=== PATIENT | male | born 1955 | race Caucasian/White ===

== ENCOUNTER 2024-01-08 18:05 | Emergency (ER) | payer MEDICARE, OTHER, SELFPAY ==
[2024-01-08 18:10] VITALS: BP 162/78
--- NOTE | 2024-01-08 19:53 | ED.GENMED ---
History of Present Illness
General
Chief Complaint: Swelling
Source: patient
Exam Limitations: none
Time Seen by Provider: 01/08/24 19:45
Nursing documentation reviewed up to this point in time: agreed with
History of Present Illness
History of Present Illness:
68-year-old male presents emergency department complaining of left hand swelling for the past 2 days. He states it is somewhat painful. He denies any injury. He states it came out of nowhere. He works in construction. He takes Terrafugia for
atrial fibrillation.
Past History
Past History
ED Past Medical History: Arrthythmia (Atrial fibrillation), Cancer (Lung cancer) and COPD
ED Past Surgical History: Tonsilectomy and Other (Pneumonia)
Social History
Tobacco: Smoker
Drug: None
Personal:
Living: with family
Employment: Employed
Review of Systems
Review of Systems
Allergies reviewed?: Yes
All Other Systems: Not applicable
Constitutional: Reports no symptoms
EENT: Reports no symptoms
Respiratory: Reports no symptoms
Cardiac: Reports no symptoms
ABD/GI: Reports no symptoms
: Reports no symptoms
Musculoskeletal: Reports joint swelling and edema
Skin: Reports no symptoms
Neurological: Reports no symptoms
Endocrine: Reports no symptoms
Hematologic/Lymphatic: Reports no symptoms
Psychiatric: Reports no symptoms
Phy Exam
Physical Exam
Physical Exam:
Physical Exam
General: no apparent distress, not acutely ill
Neck: supple. no meningeal signs. normal posterior pharynx
Heart: s1/s2 regular rate and rhythm, no murmur. equal radial
pulses.
HEENT: Pupils equal round reactive to light, EOMI
Lungs: no acute respiratory distress. clear bilaterally
Abdomen: normal bowel sounds. not tender. no CVAT
Neuro: alert and oriented. no focal neurological deficits cranial nerves II through XII intact
Skin: no rash
Psychiatric: well kept. interactive and cooperative
Extremities: Left forearm and hand edema. no calf tenderness. negative homans. good distal pulses
Scores
Heart Failure Risk
Heart Failure Risk Score: Not Applicable
Course
Orders/Labs/Results
Orders:
Orders
01/08/24 19:55
US Periph Venous UPPER Ext LT Urgent
Comment:
Reason For Exam: left arm/hand swelling
01/08/24 19:56
IV Insert/Care/Rem.- Treatment PRN
01/08/24 20:04
Forearm, Left 2 View [CR Forearm - Left 2 View] Urgent
Comment:
Reason For Exam: left forearm swelling and pain
01/08/24 20:50
Complete Blood Count/With Diff Urgent
Comprehensive Metabolic Panel Urgent
01/08/24 22:02
CeFAZolin 2 GRAM [Ancef] 2 grams in 10 ml IV NOW
Abnormal Lab Results
01/08/24
20:50
MPV 10.7 H fL
(7.4-10.4)
Immature Gran % 0.6 H %
(0-0.5)
Eosinophils % 10.5 H %
(0-6)
Creatinine 0.6 L mg/dL
(0.7-1.3)
01/08/24 20:50
01/08/24 20:50
Vital Signs
Initial and Last Documented VS:
Initial Vital Signs
Temp Pulse Resp BP Pulse Ox
98.0 F 68 18 162/78 96
01/08/24 18:10 01/08/24 18:10 01/08/24 18:10 01/08/24 18:10 01/08/24 18:10
Last Documented Vital Signs
Temp Pulse Resp BP Pulse Ox
98.0 F 65 16 127/65 95
01/08/24 18:10 01/08/24 21:44 01/08/24 21:44 01/08/24 21:44 01/08/24 21:44
MDM/Problems Addressed
Differential Diagnosis Includes:
DVT, cellulitis
MDM/Problems Addressed:
68-year-old male with cellulitis left forearm. No signs of abscess. Do not suspect TEN. Will give 1 dose of cefazolin, and discharged with prescription for Keflex. Patient is seeing his hardware designer tomorrow.
Chronic conditions affecting care: Arrhythmia
*Radiology
Radiology exam reviewed: radiology read reviewed (Ultrasound shows no signs of DVT, left forearm x-ray shows edema indicative of cellulitis)
*Pulse Oximetry
Patient hypoxic: no
*Critical Care Note
Total Time (30-74mins, 75-104mins- exclusive of procedures): Not Applicable
Patient Management
Social determinants of health affecting care: Living situation and Strong social support
Escalation/DeEscalation of care consider admission/obs:
Admit not indicated
ED Attending Note
-
Portions of this chart may have been created with voice recognition software.� Occasional wrong word or��sound alike� substitutions may have occurred due to the inherent limitations of voice recognition software.
Discharge Plan
Departure
Patient Disposition: Home (Routine Discharge)
Date of Disposition: 01/08/24
Time of Disposition: 22:04
Patient with high blood pressure during this ER visit?: Yes
Condition: Good
Discharge Problem:
Cellulitis of left arm
Instructions: Cellulitis (Skin Infection), Adult ED, BLOOD PRESSURE
Prescriptions:
New
cephalexin 500 mg capsule
500 mg PO QID 10 Days Qty: 40 0RF
No Action
prednisone 10 mg tablets,dose pack
10 mg PO DAILY Qty: 21 0RF
Referrals:
UNKNOWN - PT DOES,NOT KNOW [Family Provider] -
Activity Restrictions/Additional Instructions:
Follow-up with primary care in 5 to 7 days
Interventions
Interventions:
*Risk Screen - Suicide Last Done: 01/08/24 18:10
*General Assessment Last Done: 01/08/24 18:10
*Neglect/Abuse Screening Last Done: 01/08/24 18:10
ED- Fall Risk Assessment Last Done: 01/08/24 20:01
ED- Cardiac Assessment Last Done: 01/08/24 20:01
ED- Pulmonary Assessment Last Done: 01/08/24 20:01
ED-Skin Assessment Last Done: 01/08/24 20:01
Discharge Date and Time
Print Language: MALIAN
[2024-01-08 20:53] VITALS: BP 121/67
[2024-01-08 20:55] LABS: % Basophils 0.4 % (0-2); % Eosinophils 10.5 % (0-6); % Immature Granulocytes 0.6 % (0-0.5); % Lymphocytes 31.4 % (20.5-51.1); % Monocytes 8.1 % (1.7-9.3); Absolute Eosinophils 0.5 10^3/uL (0-0.7); Absolute Lymphocytes 1.6 10^3/uL (1.2-3.4); Absolute Monocytes 0.4 10^3/uL (0.1-0.6); Absolute Neutrophils 2.5 10^3/uL (1.4-6.5); Hematocrit 41.7 % (39.0-52.0); Hemoglobin 14.5 g/dL (13.0-18.0); Mean Corp Hgb Conc. 34.8 g/dL (33.0-37.0); Mean Corpuscular Hgb 30.8 pg (27.0-31.0); Mean Corpuscular Volume 88.5 fL (80.0-94.0); Mean Platelet Volume 10.7 fL (7.4-10.4); Nucleated Red Blood Cells % 0 % (-); Platelet Count 162 10^3/uL (130-400); Red Blood Cell Count 4.71 10^6/uL (4.70-6.10); Red Cell Dist. Width 13.4 % (11.5-14.5); White Blood Cell Count 5.1 10^3/uL (4.8-10.8)
[2024-01-08 21:12] LABS: ALT (SGPT) 19 U/L (0-50); AST (SGOT) 29 U/L (17-59); Albumin 4.3 g/dl (3.5-5.0); Alkaline Phosphatase 71 U/L (38-126); Blood Urea Nitrogen 9 mg/dl (9-20); Calcium 9.7 mg/dl (8.4-10.2); Carbon Dioxide 22 mmol/L (22-30); Chloride 105 mmol/L (98-107); Glucose 89 mg/dl (70-99); Potassium 4.4 mmol/L (3.5-5.1); Sodium 140 mmol/L (135-145); Total Bilirubin 0.3 mg/dl (0.2-1.3); Total Protein 7.2 g/dl (6.3-8.2); eGFR > 60.00
[2024-01-08 21:44] VITALS: BP 127/65
[2024-01-08 22:00] VITALS: BP 134/64
[2024-01-08] MEDS: ANCEF 10 IV (22:17)
== END 2024-01-08 22:23 | disposition home or self-care (01) ==
LOC: EMR 18:05
PROVIDERS: EMERGENCY PHYSICIAN Emergency Medicine
DX: L03.114 Cellulitis of left upper limb (principal); I48.91 Unspecified atrial fibrillation; J44.9 Chronic obstructive pulmonary disease, unspecified; Z85.118 Personal history of other malignant neoplasm of bronchus and lung; Z79.01 Long term (current) use of anticoagulants; F17.200 Nicotine dependence, unspecified, uncomplicated
CPT/HCPCS: 99284; 96374; 73090; 80053; 85025; 93971

== ENCOUNTER 2024-01-12 21:16 | Emergency (ER) | payer MEDICARE, OTHER, SELFPAY ==
[2024-01-12 21:35] VITALS: BP 142/75
[2024-01-12 22:11] LABS: ALT (SGPT) 16 U/L (0-50); AST (SGOT) 28 U/L (17-59); Albumin 4.2 g/dl (3.5-5.0); Alkaline Phosphatase 69 U/L (38-126); Blood Urea Nitrogen 18 mg/dl (9-20); Calcium 9.5 mg/dl (8.4-10.2); Carbon Dioxide 24 mmol/L (22-30); Chloride 101 mmol/L (98-107); Glucose 123 mg/dl (70-99); Potassium 4.4 mmol/L (3.5-5.1); Sodium 139 mmol/L (135-145); Total Bilirubin 0.2 mg/dl (0.2-1.3); Total Protein 7.2 g/dl (6.3-8.2); eGFR > 60.00
[2024-01-12 22:14] LABS: NT-proBNP 380 pg/ml; Troponin I < 0.012 ng/ml
[2024-01-12 22:17] LABS: % Basophils 1.1 % (0-2); % Immature Granulocytes 0.3 % (0-0.5); % Lymphocytes 31.5 % (20.5-51.1); % Monocytes 6.7 % (1.7-9.3); % Neutrophils 50.9 % (42.2-75.2); Absolute Eosinophils 0.3 10^3/uL (0-0.7); Absolute Lymphocytes 1.1 10^3/uL (1.2-3.4); Absolute Monocytes 0.2 10^3/uL (0.1-0.6); Absolute Neutrophils 1.8 10^3/uL (1.4-6.5); Hematocrit 40.8 % (39.0-52.0); Hemoglobin 13.6 g/dL (13.0-18.0); Mean Corp Hgb Conc. 33.7 g/dL (33.0-37.0); Mean Corpuscular Hgb 30.9 pg (27.0-31.0); Mean Corpuscular Volume 91.4 fL (80.0-94.0); Nucleated Red Blood Cells % 0 % (-); Red Blood Cell Count 4.44 10^6/uL (4.70-6.10); Red Cell Dist. Width 13.4 % (11.5-14.5); White Blood Cell Count 3.6 10^3/uL (4.8-10.8)
[2024-01-12 23:20] VITALS: BP 121/97
[2024-01-12] MEDS: DELTASONE 50 MG PO (23:40)
--- NOTE | 2024-01-13 00:27 | ED.GENMED ---
History of Present Illness
General
Chief Complaint: Musculo-Skeletal Complaint
Source: patient
Exam Limitations: none
Time Seen by Provider: 01/12/24 23:23
History of Present Illness
History of Present Illness:
This is a 68 year old male that comes in with c/o right arm pain and his fingers feeling numb. States that he was here last week for left arm pain and swelling. State that he started with right arm pain 2 days ago. States that his fingers feel numb
and he has pain in the wrist, elbow, shoulder and under the right axilla. Denies any fever, chill,s chest pain, SOB, abd pain, nausea,vomiting, diarrhea, headache, dizziness, urinary burning.
Past History
Past History
ED Past Medical History: Arrthythmia (Atrial fibrillation), Cancer (Lung cancer), COPD and Other (PNA, )
ED Past Surgical History: Tonsilectomy and Other (Pneumonia)
Social History
Tobacco: Smoker
Alcohol: Occasional
Drug: None
Personal:
Living: with family
Employment: Employed
Review of Systems
Review of Systems
All Other Systems: ROS reviewed and negative except as documented in HPI and ROS
Constitutional: Reports no symptoms; Denies fever or chills
EENT: Reports no symptoms
Respiratory: Reports no symptoms; Denies cough or trouble breathing
Cardiac: Reports no symptoms; Denies chest pain
ABD/GI: Reports no symptoms; Denies abdominal pain, nausea, vomiting or diarrhea
: Reports no symptoms; Denies dysuria, frequency or urgency
Musculoskeletal: Reports other (Right arm pain)
Skin: Reports no symptoms
Neurological: Reports no symptoms; Denies dizzy or headache
Psychiatric: Reports no symptoms
Phy Exam
General Physical Exam
General Presentation: no apparent distress
General age: appears stated age
General Skin: warm and dry
General Habitus: normal
General Mental: alert
General Hydration: appears well hydrated
ENT Exam
ENT Exam: TM's normal (large amount of Cerumen right ear), pharynx normal and neck supple
Eye Exam
Eye Exam: EOMI
Cardiovascular Exam
Cardiovascular Exam: regular rate/rhythm and normal peripheral pulses
Pulmonary Exam
Pulmonary Exam: no respiratory distress, no rales, chest non tender, no crackles, no rhonchi, no cough and other (Faint exp wheezing throughout)
Gastrointestinal Exam
Gastrointestinal Exam: normal bowel sounds, non tender, soft, no organomegaly, no pulsatile mass and non distended
Musculoskeletal Exam
Musculoskeletal Exam: full ROM and other (Swelling of the left hand noted. No swelling of the right arm. Good peripheral pulses with normal coloring. )
Skin Exam
Skin Exam: normal color, warm/dry, no rash and no petechia
Psychiatric Exam
Psychiatric Exam: normal mood/affect
Course
Orders/Labs/Results
Orders:
Orders
01/12/24 21:24
ECG [Electrocardiogram (*1)] Urgent
Reason for Study: Chest Pain
01/12/24 21:25
EKG- Treatment ONCE
01/12/24 21:42
BNP [NT-proBNP] Urgent
Complete Blood Count/With Diff Urgent
Comprehensive Metabolic Panel Urgent
Troponin I Urgent
01/12/24 23:36
Prednisone [Deltasone] 50 mg PO NOW STA
01/13/24 00:00
US Periph Venous UPPER Ext RT Urgent
Reason For Exam: Pain and swelling
Abnormal Lab Results
01/12/24
21:42
WBC 3.6 L 10^3/uL
(4.8-10.8)
RBC 4.44 L 10^6/uL
(4.70-6.10)
Absolute Lymphs (auto) 1.1 L 10^3/uL
(1.2-3.4)
Eosinophils % 10.0 H %
(0-6)
Glucose 123 H mg/dl
(70-99)
01/12/24 21:42
01/12/24 21:42
Leukopenia, Hyperglycemia. Troponin <0.012, Pro-BNP 380
Vital Signs
Initial and Last Documented VS:
Initial Vital Signs
Pulse Resp BP Pulse Ox
72 18 142/75 97
01/12/24 21:35 01/12/24 21:35 01/12/24 21:35 01/12/24 21:35
Last Documented Vital Signs
Temp Pulse Resp BP Pulse Ox
98.3 F 67 18 121/97 97
01/12/24 21:38 01/12/24 23:20 01/12/24 23:20 01/12/24 23:20 01/12/24 21:35
MDM/Problems Addressed
Differential Diagnosis Includes:
DVT, Gout, Lyme
MDM/Problems Addressed:
This is a 68 year old male that comes in with c/o right arm pain. States that his fingers feel numb and that he has pain all over the arm in the wrist, elbow and under his arm.
Will check labs and get US.
Back into see patient. Explained that his US was normal. Blood work shows that his Troponin is normal. Explained that a Lyme titer was added due to the fact that his joints hurt and this is moving around. Explained that if this is positive he would
be called. Will place patient on steroids to help decrease any inflammation. Patient can use Tylenol or Ibuprofen for pain. Return with any concerns.
Chronic conditions affecting care: Cancer
Acute Exacerbation and/or Progression of Chronic Illness:
NA
*Radiology
Radiology exam reviewed: other (US- negative for DVT right arm. )
*Pulse Oximetry
Patient hypoxic: no
*EKG
Interpreted by ED Provider?: NA
Rate: EKG- N/A
*Space Physicist Interpretation
Rate: Space Physicist- N/A
*Critical Care Note
Total Time (30-74mins, 75-104mins- exclusive of procedures): Not Applicable
ED Attending Note
-
Portions of this chart may have been created with voice recognition software.� Occasional wrong word or��sound alike� substitutions may have occurred due to the inherent limitations of voice recognition software.
Discharge Plan
Departure
Patient Disposition: Home (Routine Discharge)
Date of Disposition: 01/13/24
Time of Disposition: 00:40
Patient with high blood pressure during this ER visit?: Yes
Condition: Good
Covid-19: Not Applicable
Discharge Problem:
Arm pain, right, Numbness of finger
Instructions: Acute Pain, Adult (DC), Paresthesia (DC)
Prescriptions:
New
prednisone 20 mg tablet
40 mg PO DAILY Qty: 10 0RF
No Action
prednisone 10 mg tablets,dose pack
10 mg PO DAILY Qty: 21 0RF
cephalexin 500 mg capsule
500 mg PO QID 10 Days Qty: 40 0RF
Referrals:
Dom Trejo MD [Family Provider] - Follow up in 2-3 days
Activity Restrictions/Additional Instructions:
As discussed, your blood work is normal. Your Ultrasound is negative for any blood clots. A Lyme titer was added to your blood work. If this would come back positive you will be called. You have had a prescription for Prednisone sent to your
Pharmacy. Please take this as directed as this will help decreased inflammation and hopefully help with pain. Follow up with the family doctor for recheck. IF YOU HAVE ANY OTHER CONCERNS PLEASE RETURN TO THE EMERGENCY ROOM.
Interventions
Interventions:
*Risk Screen - Suicide Last Done: 01/12/24 21:36
*General Assessment Last Done: 01/12/24 21:37
*Neglect/Abuse Screening Last Done: 01/12/24 21:36
*ED COVID-19 Vaccine History Last Done: 01/12/24 21:37
ED-Musculoskeletal Assessment Last Done: 01/12/24 23:21
ED- Neurological Assessment Last Done: 01/12/24 23:21
Discharge Date and Time
Print Language: ISRAELI
== END 2024-01-13 00:49 | disposition home or self-care (01) ==
LOC: EMR 21:16
PROVIDERS: Emergency Medicine; EMERGENCY PHYSICIAN Emergency Medicine; FAMILY PHYSICIAN Family Medicine
DX: M79.601 Pain in right arm (principal); R20.0 Anesthesia of skin; I48.91 Unspecified atrial fibrillation; F17.200 Nicotine dependence, unspecified, uncomplicated; J44.9 Chronic obstructive pulmonary disease, unspecified; Z85.118 Personal history of other malignant neoplasm of bronchus and lung
CPT/HCPCS: 99284; 80053; 83880; 84484; 85025; 86618; 93005; 93971

== ENCOUNTER → 2024-04-22 10:15 | Outpatient (REF) | payer MEDICARE, OTHER, SELFPAY | LOC: EMG 10:15 | PROVIDERS: ATTENDING PHYSICIAN Pain Medicine Interventional Pain Medicine | DX: M54.12 Radiculopathy, cervical region (principal) | CPT/HCPCS: 95886; 95911 ==

== ENCOUNTER 2024-05-29 19:15 | Emergency (ER) | payer MEDICARE, OTHER, SELFPAY ==
[2024-05-29 19:19] VITALS: BP 145/70
[2024-05-29 19:51] LABS: % Basophils 0.6 % (0-2); % Eosinophils 2.3 % (0-6); % Immature Granulocytes 0.8 % (0-0.5); % Lymphocytes 17.8 % (20.5-51.1); % Monocytes 4.6 % (1.7-9.3); % Neutrophils 73.9 % (42.2-75.2); Absolute Basophils 0.1 10^3/uL (0-0.2); Absolute Eosinophils 0.2 10^3/uL (0-0.7); Absolute Immature Granulocytes 0.1 10^3/uL (0-0.05); Absolute Lymphocytes 1.4 10^3/uL (1.2-3.4); Absolute Monocytes 0.4 10^3/uL (0.1-0.6); Absolute Neutrophils 5.7 10^3/uL (1.4-6.5); Hematocrit 43.6 % (39.0-52.0); Hemoglobin 14.9 g/dL (13.0-18.0); Mean Corp Hgb Conc. 34.2 g/dL (33.0-37.0); Mean Corpuscular Volume 87.7 fL (80.0-94.0); Mean Platelet Volume 8.6 fL (7.4-10.4); Nucleated Red Blood Cells % 0 % (-); Platelet Count 283 10^3/uL (130-400); Red Blood Cell Count 4.97 10^6/uL (4.70-6.10); Red Cell Dist. Width 16.1 % (11.5-14.5); White Blood Cell Count 7.8 10^3/uL (4.8-10.8)
[2024-05-29 20:02] LABS: ALT (SGPT) 19 U/L (0-50); AST (SGOT) 24 U/L (17-59); Albumin 4.9 g/dl (3.5-5.0); Alkaline Phosphatase 94 U/L (38-126); Blood Urea Nitrogen 10 mg/dl (9-20); Calcium 9.5 mg/dl (8.4-10.2); Carbon Dioxide 23 mmol/L (22-30); Chloride 99 mmol/L (98-107); Glucose 120 mg/dl (70-99); Potassium 4.2 mmol/L (3.5-5.1); Sodium 137 mmol/L (135-145); Total Bilirubin 0.5 mg/dl (0.2-1.3); Total Protein 8.2 g/dl (6.3-8.2); eGFR > 60.00
[2024-05-29 22:11] VITALS: BP 139/62
[2024-05-29 23:00] VITALS: BP 134/50
--- NOTE | 2024-05-29 23:24 | ED.GENMED ---
History of Present Illness
<Grazyna Quintanilla PA-C - Last Filed: 05/30/24 16:19>
General
Chief Complaint: Weakness
Source: patient
Exam Limitations: none
Time Seen by Provider: 05/29/24 23:00
Nursing documentation reviewed up to this point in time: agreed with
History of Present Illness
History of Present Illness:
Patient is a 68-year-old male presenting to the emergency department with difficulty walking. Patient states he was attempting to get out of his truck this evening when both of his legs gave out and he fell onto his bilateral knees. Patient states
he was unable to get up on his own until his [id number]-ton came to help. Patient states he has been unable to walk since this happened as his legs like they are 'buckling '. He describe a pain/tightness behind his left knee while bending his knee.
Patient denies any numbness/tingling in bilateral lower extremities. He denies any weakness sensation. He denies any preceding chest pain or shortness of breath prior to fall. Patient denies any headache. Patient denies any loss of consciousness
or head strike.
Patient does report this occurred shortly after leaving a bar where he had 3 beers and a burger. He does take Eliquis for atrial fibrillation.
Past History
<Grazyna Quintanilla PA-C - Last Filed: 05/30/24 16:19>
Past History
ED Past Medical History: Arrthythmia (Atrial fibrillation), Cancer (Lung cancer), COPD and Other (PNA, )
ED Past Surgical History: Tonsilectomy and Other (Pneumonia)
Social History
Tobacco: Smoker
Alcohol: Occasional
Drug: None
Personal:
Living: with family
Employment: Employed
Review of Systems
<Grazyna Quintanilla PA-C - Last Filed: 05/30/24 16:19>
Review of Systems
Allergies reviewed?: Yes
All Other Systems: ROS reviewed and negative except as documented in HPI and ROS
Phy Exam
<Grazyna Quintanilla PA-C - Last Filed: 05/30/24 16:19>
Physical Exam
Physical Exam:
Vitals: Patient's vital signs are stable. Afebrile
General: Patient is flushed appearing. No apparent distress
Skin: Warm and dry, no rashes or lesions
Head: Normocephalic, atraumatic
Eyes: Sclera nonicteric. EOMs intact. No nystagmus.
Throat: Protecting airway
Neck: Normal ROM, no cervical spine tenderness, no meningismus
Cardiac: Regular rate and rhythm, no murmurs.
Pulm: Normal respiratory effort, no wheezes, rales, rhonchi heard on exam.
Abdomen: Abdomen soft and nontender no abdominal tenderness.
Extremities: Mild tenderness to palpation in left popliteal fossa. No bony tenderness in right knee with excellent range of motion. No joint laxity of left knee. Excellent ability to dorsiflex/plantarflex bilateral ankles. Bilateral lower
extremities normal capillary refill in palpable distal pulses. Strength grossly intact in bilateral lower extremities with normal sensation. No evidence of cyanosis or edema
Neuro: AAOx3. CN II-XII intact. No focal neurologic deficits. Fluid speech.
Psychiatric: Normal affect.
Course
<Grazyna Quintanilla PA-C - Last Filed: 05/30/24 16:19>
Orders/Labs/Results
Orders:
Orders
05/29/24 19:28
Complete Blood Count/With Diff Urgent
Comprehensive Metabolic Panel Urgent
05/29/24 23:21
EKG- Treatment ONCE
05/29/24 23:59
CR Knee - Left 4 Or More View* Urgent
Reason For Exam: left knee pain, inability to walk
05/30/24
Electrocardiogram (*1) Stat
Reason for Study: Chest Pain
Comment: DONE NO ORDER ENTERED
05/30/24 01:37
CT Head W/o Iv Contrast Urgent
Comment:
Reason For Exam: fall on eliquis
05/30/24 02:53
Chuck Wrap Left-Treatment ONCE
Crutches-Treatment ONCE
Abnormal Lab Results
05/29/24
19:28
RDW 16.1 H %
(11.5-14.5)
Abs Immat Gran (auto) 0.1 H 10^3/uL
(0-0.05)
Immature Gran % 0.8 H %
(0-0.5)
Lymphocytes % 17.8 L %
(20.5-51.1)
Glucose 120 H mg/dl
(70-99)
05/29/24 19:28
05/29/24 19:28
Vital Signs
Initial and Last Documented VS:
Initial Vital Signs
Temp Pulse Resp BP Pulse Ox
97.5 F 88 16 145/70 97
05/29/24 19:19 05/29/24 19:19 05/29/24 19:19 05/29/24 19:19 05/29/24 19:19
Last Documented Vital Signs
Temp Pulse Resp BP Pulse Ox
97.5 F 80 16 146/85 97
05/29/24 19:19 05/30/24 03:22 05/30/24 03:22 05/30/24 03:22 05/30/24 03:22
<Jeyson Carreon MD - Last Filed: 05/30/24 01:57>
Orders/Labs/Results
Orders:
Orders
05/29/24 19:28
Complete Blood Count/With Diff Urgent
Comprehensive Metabolic Panel Urgent
05/29/24 23:21
EKG- Treatment ONCE
05/29/24 23:59
CR Knee - Left 4 Or More View* Urgent
Reason For Exam: left knee pain, inability to walk
05/30/24
Electrocardiogram (*1) Stat
Reason for Study: Chest Pain
Comment: DONE NO ORDER ENTERED
05/30/24 01:37
CT Head W/o Iv Contrast Urgent
Comment:
Reason For Exam: fall on eliquis
05/30/24 02:53
Chuck Wrap Left-Treatment ONCE
Crutches-Treatment ONCE
Abnormal Lab Results
05/29/24
19:28
RDW 16.1 H %
(11.5-14.5)
Abs Immat Gran (auto) 0.1 H 10^3/uL
(0-0.05)
Immature Gran % 0.8 H %
(0-0.5)
Lymphocytes % 17.8 L %
(20.5-51.1)
Glucose 120 H mg/dl
(70-99)
05/29/24 19:28
05/29/24 19:28
Vital Signs
Initial and Last Documented VS:
Initial Vital Signs
Temp Pulse Resp BP Pulse Ox
97.5 F 88 16 145/70 97
05/29/24 19:19 05/29/24 19:19 05/29/24 19:19 05/29/24 19:19 05/29/24 19:19
Last Documented Vital Signs
Temp Pulse Resp BP Pulse Ox
97.5 F 80 16 146/85 97
05/29/24 19:19 05/30/24 03:22 05/30/24 03:22 05/30/24 03:22 05/30/24 03:22
<Grazyna Quintanilla PA-C - Last Filed: 05/30/24 16:19>
MDM/Problems Addressed
Differential Diagnosis Includes:
Not limited to: Knee sprain/strain, neuropathy, Hull's cyst, etc.
MDM/Problems Addressed:
68-year-old male with history as documented presenting with ambulatory dysfunction and reports of left knee pain. He states his of his left leg 'gave out'as he was trying to get out of his truck tonight. He denies any unilateral weakness,
numbness/tingling, headache, or head trauma. Mildly hypertensive, otherwise stable vital signs. Physical exam as above. Patient does have mild tenderness in left popliteal fossa without any joint laxity or bony tenderness of left lower extremity.
Strength 5 out of 5 in bilateral lower extremities with normal range of motion and ankles including plantarflexion/dorsiflexion. There is a normal neurovascular exam of his extremities. No focal neurologic findings on exam. There is no obvious
head or neck trauma. Basic labs were sent in triage without clinically significant abnormalities. Ultimately�suspect musculoskeletal etiology as findings seem isolated to left knee. Do not suspect central process or CVA. Will obtain x-ray left
knee. Given patient is on Eliquis with history of recent alcohol abuse�will obtain head CT to rule out any evidence of head trauma or intracranial abnormality.
Update: CT head without acute abnormalities. X-ray of left knee reviewed by me which shows no acute abnormalities. Suspect ligamentous injury/strain of left knee. Patient is able to ambulate with limp. Will Chuck wrap, provide crutches and
discharged with orthopedic follow-up. Strict return precautions discussed. Patient expressed verbal understanding. Patient will be discharged home with . Case seen with attending physician
Chronic conditions affecting care:
Atrial fibrillation on Eliquis
Acute Exacerbation and/or Progression of Chronic Illness:
N/A
<Grazyna Quintanilla PA-C - Last Filed: 05/30/24 16:19>
*Radiology
Radiology exam reviewed: preliminary read by ED provider (Knee x-ray reviewed by me-no acute fracture or abnormality) and radiology read reviewed (CT head without acute abnormality or evidence of intracranial hemorrhage)
*Pulse Oximetry
Patient hypoxic: no
*EKG
Interpreted by ED Provider?: Yes
EKG Intrepretation Date: 05/30/24
Interpretation: normal
Comparison EKG: no comparison EKG present
Heart Rate: 66
Rate: normal
Rhythm: sinus
[place]: normal axis
Interval: normal interval
QRS Pattern: normal QRS
Ischemia: no ischemia
*Sales And Service Specialist Interpretation
Rate: Sales And Service Specialist- N/A
*Critical Care Note
Total Time (30-74mins, 75-104mins- exclusive of procedures): Not Applicable
ED Attending Note
<Grazyna Quintanilla PA-C - Last Filed: 05/30/24 16:19>
-
Portions of this chart may have been created with voice recognition software.� Occasional wrong word or��sound alike� substitutions may have occurred due to the inherent limitations of voice recognition software.
<Jeyson Carreon MD - Last Filed: 05/30/24 01:57>
ED Attending Note
Patient seen and examined by attending physician: Yes
I performed the substantive portion of visit, reviewed & personally made and approve the management plan that is documented in note by myself or RICARDO.: Yes
ED Attending Note:
Patient was walking out of the bar. Got to his truck and felt like his left leg gave way. He was able to drive home. When he got home the symptoms persisted. It is all pain and weakness behind the left knee. No other neurologic symptoms. No
trauma.
On exam patient is nontoxic in no distress. Slight erythema to both cheeks. Cranial nerves II through XII intact. Speech normal. Good lower extremity strength. Able to plantar and dorsiflex at the ankles very well bilaterally. Achilles intact.
Knee is stable. Some tenderness behind the left knee laterally. Although not no laxity. Upon standing he seems to have pain and slightly buckling of the left knee but again this is isolated to the knee.
Vascular status within normal limits. Good distal pulses. I do not feel this is an acute neurologic event. This is very isolated to the left knee. This appears to be a orthopedic issue with the left knee. No acute vascular issue. Chuck wrap
crutches and orthopedic follow-up
Discharge Plan
Departure
Patient Disposition: Home (Routine Discharge)
Date of Disposition: 05/30/24
Time of Disposition: 02:56
Patient with high blood pressure during this ER visit?: Yes
Covid-19: Not Applicable
Discharge Problem:
Knee pain, left
Instructions: Knee pain - ED discharge instructions
Prescriptions:
No Action
prednisone 10 mg tablets,dose pack
10 mg PO DAILY Qty: 21 0RF
cephalexin 500 mg capsule
500 mg PO QID 10 Days Qty: 40 0RF
prednisone 20 mg tablet
40 mg PO DAILY Qty: 10 0RF
Referrals:
NONE,* [Family Provider] -
Galo Armstrong MD [Active] - Call in 1-3 days for appt
Activity Restrictions/Additional Instructions:
Return to the emergency department with any numbness/tingling in the left lower leg, significant weakness, intractable pain, inability to ambulate, episodes of fainting or any other concerns
- As discussed the workup in the emergency department was negative today including lab work, head CT, and knee x-ray.
- I suspect a likely injury to your left knee which you should follow-up with orthopedics. You are placed in the Chuck wrap and given crutches to assist with ambulation. Continue to ice and elevate your left leg and take Tylenol as needed for pain
- Follow-up with orthopedics for further evaluation/management
Monitor your symptoms closely and return to the emergency department with any acute worsening/new symptoms or any other concerns
Interventions
Interventions:
*Risk Screen - Suicide Last Done: 05/29/24 19:22
*General Assessment Last Done: 05/30/24 03:06
*Neglect/Abuse Screening Last Done: 05/29/24 19:22
*ED- Fall Risk Assessment Last Done: 05/30/24 03:06
*ED COVID-19 Vaccine History Last Done: 05/30/24 03:06
*Nursing Disposition Last Done: 05/30/24 03:22
ED- Cardiac Assessment Last Done: 05/30/24 00:06
ED- Neurological Assessment Last Done: 05/30/24 00:06
ED- Pulmonary Assessment Last Done: 05/30/24 00:06
Discharge Date and Time
Discharge Date/Time: 05/30/24 03:31
Print Language: ANGOLAN
[2024-05-30 01:41] VITALS: BP 126/65
[2024-05-30 03:22] VITALS: BP 146/85
== END 2024-05-30 03:31 | disposition home or self-care (01) ==
LOC: EMR 19:15
PROVIDERS: Emergency Medicine; EMERGENCY PHYSICIAN Emergency Medicine
DX: M25.562 Pain in left knee (principal); W19.XXXA Unspecified fall, initial encounter; R53.1 Weakness; R26.2 Difficulty in walking, not elsewhere classified; I48.91 Unspecified atrial fibrillation; J44.9 Chronic obstructive pulmonary disease, unspecified; Z79.01 Long term (current) use of anticoagulants; Z85.118 Personal history of other malignant neoplasm of bronchus and lung
CPT/HCPCS: 99284; 70450; 73564; 80053; 85025; 93005

== ENCOUNTER 2024-07-07 03:45 | Observation (INO) | payer MEDICARE, OTHER, SELFPAY ==
[2024-07-06 18:42] VITALS: BP 159/71
[2024-07-06 18:57] LABS: % Basophils 0.7 % (0-2); % Eosinophils 3.3 % (0-6); % Immature Granulocytes 0.3 % (0-0.5); % Monocytes 10.5 % (1.7-9.3); % Neutrophils 55.2 % (42.2-75.2); Absolute Basophils 0.1 10^3/uL (0-0.2); Absolute Eosinophils 0.2 10^3/uL (0-0.7); Absolute Monocytes 0.7 10^3/uL (0.1-0.6); Absolute Neutrophils 3.7 10^3/uL (1.4-6.5); Hematocrit 42.8 % (39.0-52.0); Hemoglobin 14.7 g/dL (13.0-18.0); Mean Corp Hgb Conc. 34.3 g/dL (33.0-37.0); Mean Corpuscular Hgb 30.5 pg (27.0-31.0); Mean Corpuscular Volume 88.8 fL (80.0-94.0); Mean Platelet Volume 8.6 fL (7.4-10.4); Nucleated Red Blood Cells % 0 % (-); Platelet Count 225 10^3/uL (130-400); Red Blood Cell Count 4.82 10^6/uL (4.70-6.10); Red Cell Dist. Width 14.7 % (11.5-14.5); White Blood Cell Count 6.7 10^3/uL (4.8-10.8)
[2024-07-06 19:13] LABS: ALT (SGPT) 25 U/L (0-50); AST (SGOT) 29 U/L (17-59); Alkaline Phosphatase 66 U/L (38-126); Blood Urea Nitrogen 11 mg/dl (9-20); Calcium 9.3 mg/dl (8.4-10.2); Carbon Dioxide 24 mmol/L (22-30); Chloride 101 mmol/L (98-107); Glucose 98 mg/dl (70-99); Potassium 4.2 mmol/L (3.5-5.1); Sodium 134 mmol/L (135-145); Total Bilirubin 0.6 mg/dl (0.2-1.3); Total Protein 7.9 g/dl (6.3-8.2); eGFR > 60.00
[2024-07-06 19:21] LABS: Troponin I < 0.012 ng/ml
[2024-07-06 23:21] VITALS: BMI 26.8
[2024-07-06 23:23] VITALS: BP 120/72
[2024-07-06 23:24] VITALS: BP 120/72
--- NOTE | 2024-07-06 23:43 | ED.GENMED ---
History of Present Illness
General
Chief Complaint: Chest Pain
Source: patient and family
Exam Limitations: none
Time Seen by Provider: 07/06/24 23:13
Nursing documentation reviewed up to this point in time: agreed with
History of Present Illness
History of Present Illness:
68-year-old male presents emerged part with right-sided chest pain that has been present for the last few days. He states that it has been slightly worsening. Denies fever, chills, nausea or vomiting. He states he feels this pain when he has a
deep inspiration. Does have a history of lung cancer. He is a current smoker. Admits to drinking 'a lot of alcohol' prior to coming into the emergency department. Patient does have atrial fibrillation and is on Eliquis. Patient works in a will
environment. Denies drug use.
Vital signs are stable. Patient not hypoxic
Nursing note reviewed. I agree with nursing documentation up to this point in time.
Home Meds and allergies reviewed.
NUMBER AND COMPLEXITY OF PROBLEMS ADDRESSED AT THE ENCOUNTER
� Chronic conditions affecting care: Atrial fibrillation, continued tobacco abuse, history of lung cancer, COPD
� Acute Exacerbation and/or Progression of Chronic Illness:
� Differential Diagnosis includes: ACS, musculoskeletal chest pain, pulmonary embolus, return of lung cancer, pneumonia, COPD exacerbation
AMOUNT AND/OR COMPLEXITY OF DATA TO BE REVIEWED AND ANALYZED
I performed an independent evaluation of the following and my interpretation is:
EKG:
Pulse Ox: Not Hypoxic
Surgical Processor: Sinus Rhythm
CT:
X-rays:
Ultrasound:
Laboratory Studies: First troponin negative. White blood cell count negative
Other:
Review of other/old records:
Clinical information was obtained by an independent historian:
Prescriptions/Medications Considered but not given:
Further testing considered but not performed:
RISK OF COMPLICATIONS AND/OR MORBIDITY OR MORTALITY OF PATIENT MANAGEMENT
Social determinants of health affecting care: Good Social Support
Discussion with other providers:
Escalation of care including admission/observation vs risk of discharge considered: After being observed in the emergency department, patient is
CRITICAL CARE NOTE:
Total Time (exclusive of procedures):
Update:
Past History
Past History
ED Past Medical History: Arrthythmia (Atrial fibrillation), Cancer (Lung cancer), COPD and Other (PNA, )
ED Past Surgical History: Tonsilectomy and Other (Pneumonia)
Social History
Tobacco: Smoker
Alcohol: Occasional
Drug: None
Personal:
Living: with family
Employment: Employed
Review of Systems
Review of Systems
Allergies reviewed?: Yes
All Other Systems: ROS reviewed and negative except as documented in HPI and ROS
Constitutional: Reports no symptoms
EENT: Reports no symptoms
Respiratory: Reports no symptoms
Cardiac: Reports chest pain
ABD/GI: Reports no symptoms
: Reports no symptoms
Musculoskeletal: Reports no symptoms
Skin: Reports no symptoms
Neurological: Reports no symptoms
Endocrine: Reports no symptoms
Hematologic/Lymphatic: Reports no symptoms
Psychiatric: Reports anxiety
Phy Exam
General Physical Exam
General Presentation: well appearing and no apparent distress
General Skin: warm and dry
General Habitus: normal
General Mental: alert
General Hydration: appears well hydrated
ENT Exam
ENT Exam: EOMI, pharynx normal, neck supple and normocephalic
Eye Exam
Eye Exam: PERRL, cornea clear and conjunctiva normal
Cardiovascular Exam
Cardiovascular Exam: regular rate/rhythm, no edema, normal peripheral pulses and systolic murmur
Systolic Murmur: 4/6
Heart Sounds: normal
Pulmonary Exam
Pulmonary Exam: lungs clear, no respiratory distress, no rales, no crackles, no rhonchi, no stridor, no wheezing and no cough
Gastrointestinal Exam
Gastrointestinal Exam: normal bowel sounds, non tender, soft, no organomegaly, no pulsatile mass and non distended
Neurological Exam
Neurological Exam: alert, oriented x3, no motor deficits and speech normal
Musculoskeletal Exam
Musculoskeletal Exam: full ROM and no edema
Skin Exam
Skin Exam: normal color, warm/dry, no rash and no petechia
Psychiatric Exam
Psychiatric Exam: normal mood/affect
Scores
Heart Score for Chest Pain Patients
STEMI patient?: No
History: Slightly or Non-Suspicious
ECG: Normal
Age: >/= 65 years
Risk Factors: 1 or 2 Risk Factors
Troponin: >1 - <3 x Normal Limit
Heart Score for Chest Pain Patients: 4
Heart Score Risk: 20.3% MACE over next 6 weeks
Course
Orders/Labs/Results
Orders:
Orders
07/06/24 18:38
EKG [Electrocardiogram (*1)] Urgent
Reason for Study: Chest Pain
EKG- Treatment ONCE
07/06/24 18:50
Complete Blood Count/With Diff Urgent
Comprehensive Metabolic Panel Urgent
Troponin I Urgent
07/06/24 23:39
Troponin I Urgent
07/07/24
CT Chest PE Study Urgent
Reason For Exam: tachy, cp, hx lung ca, dyspnea
Abnormal Lab Results
07/06/24
18:50
RDW 14.7 H %
(11.5-14.5)
Absolute Monos (auto) 0.7 H 10^3/uL
(0.1-0.6)
Monocytes % 10.5 H %
(1.7-9.3)
Sodium 134 L mmol/L
(135-145)
Creatinine 0.6 L mg/dL
(0.7-1.3)
07/06/24 18:50
07/06/24 18:50
Vital Signs
Initial and Last Documented VS:
Initial Vital Signs
Temp Pulse Resp BP Pulse Ox
97.5 F 65 18 159/71 97
07/06/24 18:42 07/06/24 18:42 07/06/24 18:42 07/06/24 18:42 07/06/24 18:42
Last Documented Vital Signs
Temp Pulse Resp BP Pulse Ox
98.3 F 81 23 123/84 94
07/06/24 23:23 07/07/24 02:00 07/07/24 02:00 07/07/24 02:00 07/07/24 02:00
*Critical Care Note
Total Time (30-74mins, 75-104mins- exclusive of procedures): Not Applicable
Update Note
Update Note:
Discussed CT scan findings with patient and . Patient had very little to say
Pt to be admitted for further testing
ED Attending Note
-
Portions of this chart may have been created with voice recognition software.� Occasional wrong word or��sound alike� substitutions may have occurred due to the inherent limitations of voice recognition software.
Discharge Plan
Departure
Patient Disposition: Admit
Date of Disposition: 07/07/24
Time of Disposition: 02:04
Admit to: Telemetry
Presentation/result/management discussed w/ accepting MD/DO: Hospitalist
Discharge Problem:
Acute pericardial effusion, Pericarditis, Retrosternal effusion, Paramediastinal fibrosis
Prescriptions:
No Action
Eliquis 5 mg Tablet
5 mg PO BID
metoprolol succinate 50 mg Capsule,Sprinkle,Er 24hr
50 mg PO DAILY
Referrals:
NONE,* [Family Provider] -
Interventions
Interventions:
*Risk Screen - Suicide Last Done: 07/06/24 18:42
*General Assessment Last Done: 07/06/24 18:42
*Neglect/Abuse Screening Last Done: 07/06/24 18:42
*ED- Fall Risk Assessment Last Done: 07/06/24 23:23
*ED COVID-19 Vaccine History Last Done: 07/06/24 18:42
ED- Cardiac Assessment Last Done: 07/07/24 00:00
Discharge Date and Time
Print Language: THAI
[2024-07-07] VITALS (12 sets, daily range): BP systolic 105–150; BP diastolic 61–84; BMI 26.8
[2024-07-07 00:13] LABS: Troponin I < 0.012 ng/ml
--- NOTE | 2024-07-07 03:08 | HPS.HSE ---
Family Physician
-
Family Physician: * NONE
Chief Complaint
-
Chest pain
History of Present Illness
This is a 68-year-old with past medical history of lung cancer status post radiation and chemotherapy, DVT on anticoagulation with apixaban, atrial fibrillation status post ablation presenting to the emergency department with approximately 2 days of
right-sided chest pain.
Patient reports intermittent episodes of chest pain that is nonradiating and mostly localized to the right side. It does not appear to be associated with exertion. He seems to be worse with supination compared to more upright position. Mild
association with heavy inspiration but not consistently so. Denies any association with nausea vomiting or diaphoresis. Denies any exertional chest pain. In the past he had exertional chest pain that was thought to be secondary to costochondritis
in the setting of his recent radiation at that time. Patient denies any palpitations. He denies any peripheral edema. He denies orthopnea or PND.
He denies any recent cold cough or flulike symptoms. He denies any sick contacts. He has no recent travels. Patient reports he smokes about 1-1/2 packs of cigarettes daily. He also drinks draft beer of 2 8 cans a day.
In the emergency department he was afebrile, blood pressure was 123/84 with a pulse of 81 and he was satting 94% on room air.
CBC was totally unremarkable.
Electrolytes BUN/creatinine were normal. Troponin was negative. ECG shows normal sinus rhythm at a rate of 65.
CT of the chest with PE protocol was negative for PE. He had a small pericardial effusion measuring up to 10 mm in thickness which was nonspecific. There are some mild changes showing mild subcutaneous edema of the midline anterior upper chest
anterior to the sternomanubrial junction. Likely associated trace retrosternal edema also at this level. Subtle round lucencies of the upper sternum consider metastatic disease versus infectious process
Medical History
Past Medical History
Past Medical History: Reports Arrhythmia (Atrial fibrillation status post ablation), Cancer (History of lung cancer status post chemotherapy and radiation) and Other (History of DVT)
Past Surgical History: Reports None
Social History
Tobacco: Smoker
Alcohol: Chronic Alcoholic
Drug: None
Personal:
Living: With Family
Family History
Family History: Not pertinent
Allergies / Home Medications
Allergies reflects when Allergies were last updated in [employer].
Home Medications with original date entered in [employer]
Allergy/Medication List:
Allergies
Allergy/AdvReac Type Severity Reaction Status Date / Time
No Known Allergies Allergy Verified 07/06/24 18:46
Home Medications
apixaban 5 mg tablet (Eliquis) 5 mg PO BID 07/06/24
metoprolol succinate 50 mg capsule sprinkle, ext. release 24 hr 50 mg PO DAILY 07/06/24
Review of Systems
-
History Source: Patient
Constitutional: Reports No Symptoms
EENT: Reports No Symptoms
Respiratory: Reports No Symptoms
Cardiac: Reports Chest Pain
Abdomen/GI: Reports No Symptoms
: Reports No Symptoms
Musculoskeletal: Reports No Symptoms
Skin: Reports No Symptoms
Neurological: Reports No Symptoms
Endocrine: Reports No Symptoms
Hematologic/Lymphatic: Reports No Symptoms
Psych: Reports No Symptoms
Physical Exam
Vital Signs
Vital Signs
Temp Pulse Resp BP Pulse Ox
98.3 F 81 23 123/84 94
07/06/24 23:23 07/07/24 02:00 07/07/24 02:00 07/07/24 02:00 07/07/24 02:00
Physical Exam
General: Well Developed, Well Nourished and Comfortable; No Respiratory Distress
HEENT: NormoCephalic, Anicteric, Moist mucous membranes, Atraumatic and PERRLA
Respiratory: Clear
Cardiac: S1/S2 and Regular Rhythm; No Peripheral Edema
Breast: Deferred by me
GI: Soft, Non Tender, Non Distended and Normal Bowel Sounds
Rectal: Deferred by Provider
Genito-urinary: Deferred by me
Musculoskeletal: No Clubbing, No Cyanosis and No Edema
Neuro: AO x 3 and Nonfocal/grossly intact
Hematologic/Lymphatic: No Lymphadenopathy
Psych: Calm
Laboratory Results
-
07/06/24 18:50
07/06/24 18:50
Laboratory Results
Total Bilirubin 0.6 mg/dl (0.2-1.3) 07/06/24 18:50
AST 29 U/L (17-59) 07/06/24 18:50
ALT 25 U/L (0-50) 07/06/24 18:50
Alkaline Phosphatase 66 U/L (38-126) 07/06/24 18:50
Troponin I < 0.012 ng/ml 07/06/24 23:39
Data Reviewed
-
CT Scan: Report Reviewed by me
Medical Tests (Nuc Med, Echo, EKG etc): Image Personally Visualized and interpreted
Lab Data: Labs Reviewed by me
Old Records: Reviewed
Impression/Plan
-
IMPRESSION:
60-year-old with 2 days of atypical chest pain which could be pleuritic in description. Who is comfortable appearing. He is ECG is nonischemic and shows no evidence of tamponade. He is CT shows a small pericardial effusion measuring 10 mm in
thickness and nonspecific. There is no pulmonary embolism. He does have small subtle round lucencies of the upper sternum concerning for possible metastatic disease versus infectious process.
PLAN:
Atypical chest pain -likely noncardiac, 2 negative troponins, nonexertional, negative ECG and pleuritic in nature. Possibly pericarditis. However patient tells me that he knows about the pericardial effusion and has been told in the past that
there is nothing to do about it because there is not enough to drain. Pain is not reproducible with palpation. The lucencies suggestive of possible metastatic disease versus an infectious process in the sternum with consistent with myelitis
osteomyelitis.
- admit to med/surg obs
- check esr to rule out osteomyelitis. If negative no indication for mri
- possible metastatic process. Will need dedicated PET CT chest which can be done as outpatient
- possible pericarditis, no alarm signs.
though less likely given history of prior stable small pericardial effusion -> will manage empirically. Echo in am, if c/w pericarditis can start Start NSAIDs or colchicine.
- cardiology consultation
ETOH dependence with 8 cans of beer daily. Denies h/o withdrawal symptoms. Low score on PAWS. Currently asymptomatic with last drink yesterday
- low risk [facility] etoh withdrawal protocol
Continue apixaban for h/o DVT
Code status - Full code
[2024-07-07 04:02] LABS: COVID-19 Antigen Negative (Negative)
[2024-07-07] MEDS: ELIQUIS 5 MG PO ×2 (08:00→20:14)
[2024-07-07] MEDS: FOLVITE 1 MG PO (08:01)
[2024-07-07] MEDS: THIAMINE INJECTION 200 MG IV ×2 (08:01→20:14)
[2024-07-07] MEDS: TOPROL XL 50 MG PO (08:01)
--- NOTE | 2024-07-07 08:28 | CON.CAR ---
Addendum entered and electronically signed by Mode Ozuna MD 07/07/24 13:22:
I saw and examined the patient.
The GROWTH HACKER's note was reviewed and I agree with the note.
Comment: Known PAF that is treated. His pain syndrome is not classic for pericarditis. There are no EKG changes of pericarditis. I wonder if this is more pleurisy or musculoskeletal pain rather than pericarditis. His echo is unremarkable. Hard
to know if he always has a trivial pericardial effusion or not. I am not concerned for an ischemic etiology of his pain.
I think he can be safely discharged and treated for pleurisy. I would not object if 3 months of colchicine were added to his medical regimen if other clinicians were more concerned for pericarditis.
Original Note:
Consultation
Consultation Request
Date/Time Consultation Requested: 07/07/24 06
Date/Time Consultation Performed: 07/07/24 08
Requesting Provider: Dr. Cano
Performing Provider: Lucrecia REESE for Dr. Ozuna
Reason for Consultation: pericardial effusion
Medical History
-
Chief Complaint: chest discomfort
History of Present Illness:
68 y/o male with PAF on Eliquis (Dr. Stone in [place] is sports agent per patient), lung cancer (treatment with radiation and chemo, he thinks about 2017), tobacco abuse, and ETOH use disorder is here for evaluation of intermittent right-sided
chest discomfort, which he only feels with deep inspiration. It is not exertional, positional, and made worse with palpation. Otherwise, he does have a cough. Denies fever or chills. In no distress at the time of my assessment.
Past Medical History
Past Medical History: Arrhythmias and Cancer
Social History
Tobacco: Smoker (1.5 PPD)
Alcohol: Daily (6-8 beers daily)
Drug: None
Personal:
Employment: Employed
Family History
Family History: Reviewed & Not Pertinent (denies cardiac fam hx)
Allergies / Home Medications
Allergy/AdvReac Type Severity Reaction Status Date / Time
No Known Allergies Allergy Verified 07/06/24 18:46
�Medication �Instructions �Recorded �Confirmed �Type
apixaban 5 mg tablet (Eliquis) 5 mg PO BID 07/06/24 History
metoprolol succinate 50 mg capsule 50 mg PO DAILY 07/06/24 History
sprinkle, ext. release 24 hr
Review of Systems
-
History Source: Patient
All other systems: Negative unless noted
Respiratory: Cough
Cardiac: Chest Pain
Physical Exam
Vital Signs
Temp Pulse Resp BP Pulse Ox
98.4 F 75 20 133/79 96
07/07/24 07:47 07/07/24 08:01 07/07/24 05:00 07/07/24 08:01 07/07/24 08:07
Lab Results
07/06/24 18:50
07/06/24 18:50
Troponin I < 0.012 ng/ml 07/06/24 23:39
Physical Exam
General: Well Developed, Well Nourished and No Apparent Distress
HEENT: Normocephalic and Anicteric
Respiratory: Wheezes and Rhonchi
Cardiac: Regular Rhythm
Musculoskeletal: No Edema
Skin: Warm and Dry
Neuro: AO x 3
Psych: Calm
Impression / Plan
-
Chest discomfort:
-sounds pleuritic in that it is only with deep inspiration
-his lungs have wheezes and rhonchi to auscultation. He was coughing while I was in room. URI? Some abnormalities on CT imaging as below. W/u per primary.
-echo is pending to assess pericardial effusion further- no positional chest discomfort. Does not sound anginal and trops normal. Coronary w/u as OP with his primary sports agent if appropriate- since severe coronary artery calcifications noted (as
below).
Pericardial effusion:
-small on CT imaging
-echo pending
PAF:
-currently in SR- did have some AFIB in ER- does not feel it
-monitor telemetry
-continue Eliquis and metoprolol
Tobacco abuse:
-recommended cessation
ETOH use disorder:
-recommended cessation
Data:
Chest CT 07/07/24: No CTA evidence for an acute pulmonary thromboembolism. Band of fibrosis and volume loss in the medial left upper lobe at the site of the patient's treated lung cancer. Small pericardial effusion. Severe coronary artery
calcifications. Tiny rounded lucencies in the upper sternum at the sternomanubrial junction. Probably degenerative subchondral cysts, but metastatic disease versus an infectious process could also be considered.
Data Reviewed
-
EKG: Tracing Personally Visualized and interpreted (NSR)
Radiology: Report Reviewed by me
Medical Tests (Nuc Med, Echo etc): Other (echo ordered and pending)
Labs: Labs Reviewed by me
--- NOTE | 2024-07-07 10:43 | W.PN.UPDATE ---
Update Note
Progress Note Update
Seen by this morning for right-sided pleuritic chest pain and getting evaluated for pericarditis.
Patient says it all started on Friday. High intensity intensity requiring hospital visit. Pleuritic in nature. With her deep breathing he does not seems to perceive much of pain. No trauma. No heavy lifting. Localized.
Denies any fever or chills. Denies any musculoskeletal issues of the thorax in the past.
History of lung cancer 2017 treated at [facility]. Does not follow with oncology anymore.
Seems to have some discomfort in the upper right sternal border area. No palpable tenderness in manubriosternal/Early angle area.
No PE evidence. Band of fibrosis and volume loss in the left upper lobe at the site of patient's treated lung cancer noted. Small pericardial effusion noted. There are tiny rounded lucencies in the upper sternum of the sternomanubrial joint.
Possibly degenerative subchondral cysts but metastatic disease versus infectious process could be in the differential.
If echocardiogram shows no concern for pericarditis. Check inflammatory markers and consider bone scan or MRI of the manubriosternal joint. Could be done as an out patient. Treat pain symptomatically
--- NOTE | 2024-07-07 11:41 | W.PN.UPDATE ---
Update Note
Progress Note Update
Pharmacy let me know that home metoprolol dose is 25 mg daily (rather than 50 mg), so I adjusted it.
--- NOTE | 2024-07-07 14:56 | CM ---
CM met with pt and spouse bedside
They reside in a 1st floor apartment with 1STE
Pt is indep with is ADLs, denies use of DME
PCP- unknown, Dr Ching ___ through [facility] in [place]
Rx- [facility]
Physical address- [address]
Pt with daily ETOH use
Declined [facility]
COLON verbally reviewed, copy provided
Discharge Disposition- home,no needs anticipated
[2024-07-07 15:23] LABS: Erythrocyte Sed Rate 17 mm/hour (0-20)
[2024-07-07 16:17] LABS: Amphetamines Negative (Negative); Barbiturates Negative (Negative); Benzodiazepines Negative (Negative); Buprenorphine Negative (Negative); Cocaine Negative (Negative); Marijuana Negative (Negative); Methadone Negative (Negative); Methamphetamines Negative (Negative); Opiates Negative (Negative); Phencyclidine Negative (Negative); Tricyclic Antidepressants Negative (Negative)
[2024-07-08 03:40] VITALS: BP 144/84
[2024-07-08 07:08] LABS: Hematocrit 42.8 % (39.0-52.0); Hemoglobin 14.7 g/dL (13.0-18.0); Mean Corp Hgb Conc. 34.3 g/dL (33.0-37.0); Mean Corpuscular Hgb 30.6 pg (27.0-31.0); Mean Corpuscular Volume 89.2 fL (80.0-94.0); Mean Platelet Volume 8.9 fL (7.4-10.4); Platelet Count 235 10^3/uL (130-400); Red Cell Dist. Width 14.7 % (11.5-14.5); White Blood Cell Count 5.5 10^3/uL (4.8-10.8)
[2024-07-08 07:29] VITALS: BP 149/75
[2024-07-08 07:42] LABS: HDL Cholesterol 84 mg/dl; LDL Cholesterol, Calculated 60 mg/dl; Total Cholesterol 158 mg/dl (50-199); Triglyceride 74 mg/dl (10-149); Very Low Density Lipoprotein 14 mg/dl (0-30)
[2024-07-08] MEDS: ELIQUIS 5 MG PO (07:49)
[2024-07-08] MEDS: FOLVITE 1 MG PO (07:49)
[2024-07-08] MEDS: TOPROL XL 25 MG PO (07:49)
[2024-07-08] MEDS: THIAMINE INJECTION 200 MG IV (07:49)
[2024-07-08 08:10] LABS: Erythrocyte Sed Rate 18 mm/hour (0-20)
[2024-07-08 09:55] LABS: Glycohemoglobin (HgbA1c) 5.2 % (4.0-5.6)
[2024-07-08 10:58] VITALS: BP 133/76
--- NOTE | 2024-07-08 12:16 | CM ---
Patient seen at bedside
OBS status
Patient declines [facility]
PLAN: home, no needs, when medically stable
to transport
--- NOTE | 2024-07-08 13:08 | W.PN.HOSP.TC ---
Today's Communication/Plan
-
Bone scan pending
DC if bone scan is negative.
Assessment / Plan
Assessment / Plan
Right-sided pleuritic chest pain.
Patient says it all started on Friday. High intensity intensity requiring hospital visit. Pleuritic in nature. With her deep breathing he does not seems to perceive much of pain. No trauma. No heavy lifting. Localized.
Denies any fever or chills. Denies any musculoskeletal issues of the thorax in the past.
History of lung cancer 2017 treated at [facility]. Does not follow with oncology anymore.
Seems to have some discomfort in the upper right sternal border area. No palpable tenderness in manubriosternal/[place] angle area.
No PE evidence. Band of fibrosis and volume loss in the left upper lobe at the site of patient's treated lung cancer noted. Small pericardial effusion noted. There are tiny rounded lucencies in the upper sternum of the sternomanubrial joint.
Possibly degenerative subchondral cysts but metastatic disease versus infectious process could be in the differential.
Echocardiogram shows normal EF and trivial pericardial effusion. CRP is only minimally elevated.
Pain resolves in a.m. making me think it may be musculoskeletal. Bone scan was requested yesterday to look at the manubrial sternal joint abnormality and if negative will discharge patient home today.
ETOH dependence with 8 cans of beer daily. Denies h/o withdrawal symptoms. Low score on PAWS. Currently asymptomatic with last drink yesterday
- low risk [facility] etoh withdrawal protocol.
- No signs and symptoms of withdrawal.
Anticipated Discharge: Today
Subjective/Interval History
-
Date of Service: July 08, 2024
Patient today states that his right sided chest pain resolved and no pleuritic CP either. He feels fine today.
No SOB.
No fever or chills.
No nausea vomiting. Tolerating diet.
Objective Data
-
Labs:
Laboratory Results
07/08/24
06:46
WBC 5.5
Hgb 14.7
Hct 42.8
Plt Count 235
Vital Signs:
Vital Signs
Temp Pulse Resp BP Pulse Ox
97.7 F 54 16 133/76 96
07/08/24 10:58 07/08/24 10:58 07/08/24 10:58 07/08/24 10:58 07/08/24 10:58
I&O
07/07/24 07/08/24 07/09/24
06:59 06:59 06:59
Intake Total 720 / 720
Balance 720 / 720
Review of Systems
-
EENT: Denies Sore Throat
Respiratory: Reports Cough (occasional); Denies Trouble Breathing
Neuro: Denies Dizzy
Physical Exam
-
General: Comfortable
Respiratory: Clear to Auscultation and Non Labored Respirations; Negative Accessory Resp Muscle Use
Cardiac: Regular Rhythm and S1/S2
GI: Soft
Neuro: AO x 3
Data Reviewed
-
Labs: Labs Reviewed by me
[2024-07-08 15:01] VITALS: BP 143/85
== END 2024-07-08 15:30 | disposition home or self-care (01) ==
LOC: 3 WEST ACU 03:45
PROVIDERS: Student in an Organized Health Care Education/Training Program; ADMITTING PHYSICIAN Internal Medicine; ATTENDING PHYSICIAN Internal Medicine; CONSULT PHYSICIAN Internal Medicine Cardiovascular Disease; EMERGENCY PHYSICIAN Student in an Organized Health Care Education/Training Program
DX: J44.9 Chronic obstructive pulmonary disease, unspecified (principal); R07.9 Chest pain, unspecified; I48.0 Paroxysmal atrial fibrillation; Z79.01 Long term (current) use of anticoagulants; I30.9 Acute pericarditis, unspecified; J84.10 Pulmonary fibrosis, unspecified; R07.89 Other chest pain; F10.20 Alcohol dependence, uncomplicated; F17.210 Nicotine dependence, cigarettes, uncomplicated; Z85.118 Personal history of other malignant neoplasm of bronchus and lung
CPT/HCPCS: 71275; 78803; 80053; 80061; 80306; 83036; 84484; 85025; 85027; 85652; 86140; 87811; 93005; 93306; 99285; 99406; A9503; Q9967